=== PATIENT | male | born 1985 | race African-American/Black ===

== ENCOUNTER 2017-04-16 15:23 | Emergency (ER) | payer OTHER ==
[~2017-04-16] VITALS: Ht 182.9 cm; Wt 93.0 kg
[2017-04-16 15:35] VITALS: BP 126/72
--- NOTE | 2017-04-16 15:44 | PHYS DOC ---
Adult General Chief Complaint Chief Complaint: HEADACHE HPI HPI Patient is a 31 year old male presents the ED complaining of headache 2 days. Patient states he has been getting intermittent headaches over the last year. Patient states he has not been evaluated for them because Motrin usually gets them to go away. States he took Motrin yesterday but the headache went away and came back. 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 Describes the pain as sharp. Rates as 7/10. Denies worst headache of life, nausea/vomiting, trauma or injury, LOC, syncope, dizziness, weakness, paresthesias, chest pain or shortness of breath. Review of Systems Review of Systems Constitutional: Denies fever or chills [] Eyes: Denies change in visual acuity, redness, or eye pain [] HENT: Denies nasal congestion or sore throat [] Respiratory: Denies cough or shortness of breath [] Cardiovascular: No additional information not addressed in HPI [] GI: Denies abdominal pain, nausea, vomiting, bloody stools or diarrhea [] : Denies dysuria or hematuria [] Musculoskeletal: Denies back pain or joint pain [] Integument: Denies rash or skin lesions [] Neurologic: Complains of headache. Denies focal weakness or sensory changes [] Endocrine: Denies polyuria or polydipsia [] All other systems were reviewed and found to be within normal limits, except as documented in this note. Current Medications Current Medications Current Medications Medications (Trade) Dose Ordered Sig/Rut Start Time Stop Time Status Last Admin Dose Admin Acetaminophen/ Butalbital/ Caffeine (Fioricet) 1 tab PRN Q6HRS PRN 04/16/17 16:30 04/16/17 17:01 DC 04/16/17 16:36 1 TAB Diphenhydramine HCl (Benadryl) 25 mg 1X ONCE 04/16/17 16:00 04/16/17 16:01 DC 04/16/17 15:57 25 MG Ketorolac Tromethamine (Toradol Im) 60 mg 1X ONCE 04/16/17 16:00 04/16/17 16:01 DC 04/16/17 15:58 60 MG Ondansetron HCl (Zofran Odt) 4 mg 1X ONCE 04/16/17 16:00 04/16/17 16:01 DC 04/16/17 15:57 4 MG Allergies Allergies Allergies Coded Allergies Type Severity Reaction Last Updated Verified No Known Drug Allergies 04/16/17 No Physical Exam Physical Exam Constitutional: Well developed, well nourished, no acute distress, non-toxic appearance. [] HENT: Normocephalic, atraumatic, bilateral external ears normal, oropharynx moist, no oral exudates, nose normal. [] Eyes: PERRLA, EOMI, conjunctiva normal, no discharge. [] Neck: Normal range of motion, no tenderness, supple, no stridor. [] Cardiovascular:Heart rate regular rhythm, no murmur [] Lungs & Thorax: Bilateral breath sounds clear to auscultation [] Abdomen: Bowel sounds normal, soft, no tenderness, no masses, no pulsatile masses. [] Skin: Warm, dry, no erythema, no rash. [] Back: No tenderness, no CVA tenderness. [] Extremities: No tenderness, no cyanosis, no clubbing, ROM intact, no edema. [] Neurologic: Alert and oriented X 3, normal motor function, normal sensory function, no focal deficits noted. [] Psychologic: Affect normal, judgement normal, mood normal. [] Current Patient Data Vital Signs Vital Signs Date Time Temp Pulse Resp B/P (MAP) Pulse Ox O2 Delivery O2 Flow Rate FiO2 04/16/17 15:35 98.3 70 16 100 Room Air 98.3 EKG EKG [] Radiology/Procedures Radiology/Procedures [] Course & Med Decision Making Course & Med Decision Making Pertinent Labs and Imaging studies reviewed. (See chart for details) []Medicine given in ED alleviated patient's headache. Vital stable, no acute distress. No focal neural deficits. Patient well-appearing. States his headache is resolved. Discussed follow-up with a neurologist this week. Provided contact information/education. Discussed reasons to return to the ED. Patient understands and agrees with plan. Dragon Disclaimer [place]ion Disclaimer This electronic medical record was generated, in whole or in part, using a voice recognition dictation system. Departure Departure Impression: Primary Impression: Headache Disposition: HOME, SELF-CARE Condition: IMPROVED Referrals: GLADYS ESCALANTE MD Patient Instructions: General Headache Without Cause, Headache and Allergies Scripts Diphenhydramine Hcl (BENADRYL ALLERGY) 25 Mg Tablet 25 MG PO Q6HRS, #10 TAB Prov: RADHA MADDOX 04/16/17 Butalb/Acetaminophen/Caffeine ([id number]) 1 Each Capsule 1 EACH PO Q6-8HRS Y for HEADACHE, #14 CAP Prov: RADHA MADDOX 04/16/17 RADHA MADDOX Apr 16, 2017 15:44
[2017-04-16] MEDS ORDERED: diphenhydrAMINE HCL 25 MG CAPSULE PO ONE (16:00)
[2017-04-16] MEDS ORDERED: KETOROLAC 60 MG/2 ML INJ. IM ONE (16:00)
[2017-04-16] MEDS ORDERED: ONDANSETRON ODT 4 MG TAB.RAPDIS. PO ONE (16:00)
[2017-04-16] MEDS ORDERED: BUTALB/APAP/CAFEIN 50/325/40MG TABLET. PO PRN (16:30)
[2017-04-16] MEDS ORDERED: DIPH25TA64 PO (16:57)
[2017-04-16] MEDS ORDERED: BUTA1CAP57 PO (16:57)
== END 2017-04-16 16:58 | disposition home or self-care (01) ==
LOC: ER 15:23
DX: R51 Headache (principal)
CPT/HCPCS: 96372; 99284; J1885; Q0162; Q0163

== ENCOUNTER 2019-05-08 17:31 | Emergency (ER) | payer OTHER ==
[~2019-05-08] VITALS: Ht 185.4 cm; Wt 81.6 kg
[~2019-05-08 17:31] MED LIST: BUTA1CAP57 PO; DIPH25TA64 PO
[2019-05-08 17:45] VITALS: BP 157/80
--- NOTE | 2019-05-08 17:53 | PHYS DOC ---
Past Medical History Past Medical History: Migraines Additional Past Medical Histor: CHRONIC BACK PAIN Past Surgical History: No Surgical History Alcohol Use: None Drug Use: None Adult General Chief Complaint Chief Complaint: FLU SYMPTOM HPI HPI Patient is a 33 year old male who presents with nasal congestion, sore throat, cough and body aches and headache 4 days. Patient states he is just been taking Tylenol. Review of Systems Review of Systems Constitutional: fever or chills [] HENT: nasal congestion or sore throat [] Respiratory: cough or denies shortness of breath [] Musculoskeletal: Generalized body aches. Denies back pain or joint pain [] Neurologic: headache, denies focal weakness or sensory changes [] All other systems were reviewed and found to be within normal limits, except as documented in this note. Current Medications Current Medications Current Medications Medications (Trade) Dose Ordered Sig/Rut Start Time Stop Time Status Last Admin Dose Admin Ibuprofen (Motrin) 600 mg 1X ONCE 05/08/19 18:00 05/08/19 18:01 DC 05/08/19 17:56 600 MG Allergies Allergies Allergies Coded Allergies Type Severity Reaction Last Updated Verified No Known Drug Allergies 04/16/17 No Physical Exam Physical Exam Constitutional: Well developed, well nourished, no acute distress, non-toxic appearance. [] HENT: Normocephalic, atraumatic, bilateral external ears normal, oropharynx moist, no oral exudates, nose normal. [] Eyes: PERRLA, EOMI, conjunctiva normal, no discharge. [] Neck: Normal range of motion, no tenderness, supple, no stridor. [] Cardiovascular:Heart rate regular rhythm, no murmur [] Lungs & Thorax: Bilateral breath sounds clear to auscultation [] Abdomen: Bowel sounds normal, soft, no tenderness, no masses, no pulsatile masses. [] Skin: Warm, dry, no erythema, no rash. [] Back: No tenderness, no CVA tenderness. [] Extremities: No tenderness, no cyanosis, no clubbing, ROM intact, no edema. [] Neurologic: Alert and oriented X 3, normal motor function, normal sensory function, no focal deficits noted. [] Psychologic: Affect normal, judgement normal, mood normal. [] Current Patient Data Vital Signs Vital Signs Date Time Temp Pulse Resp B/P (MAP) Pulse Ox O2 Delivery O2 Flow Rate FiO2 05/08/19 17:45 103.0 93 18 157/80 (105) 98 Room Air 103.0 Lab Values Laboratory Tests Test 05/08/19 17:55 Influenza Type A Antigen Positive (NEGATIVE) Influenza Type B Antigen Negative (NEGATIVE) EKG EKG [] Radiology/Procedures Radiology/Procedures [] Course & Med Decision Making Course & Med Decision Making He states his cough is productive with yellow phlegm. Lungs are clear to auscultation all lobes. Tympanic is pink. Throat is without swelling or exudates. Speaks in full clear sentences. Ambulatory at the steady gait. Alert and oriented. Patient denies abdominal pain, nausea, vomiting, diarrhea, chest pain, shortness of air, dizziness, visual changes, numbness or tingling. Patient does smoke half a pack cigarettes a day. Patient is febrile 103. He states last took Tylenol was this morning. Dragon Disclaimer Dragon Disclaimer This electronic medical record was generated, in whole or in part, using a voice recognition dictation system. Departure Departure Impression: Primary Impression: Influenza A Disposition: 01 HOME, SELF-CARE Condition: STABLE Referrals: THANH CANNON MD (PCP) Patient Instructions: Influenza A (H1N1) Additional Instructions: Follow up with primary care provider. Take Ibuprofen and Tylenol ever 4-6 hours to keep fever and pain down. Try over the counter medications. Drink plenty of fluids. Scripts Benzonatate (TESSALON PERLE) 100 Mg Capsule 1 CAP PO TID, #30 CAP Prov: JAY FARR [employer] 05/08/19 Ondansetron (ONDANSETRON ODT) 4 Mg Tab.rapdis 1 TAB PO PRN Q6-8HRS, #16 TAB Prov: JAY FARR [employer] 05/08/19 Oseltamivir Phosphate (TAMIFLU) 75 Mg Capsule 1 CAP PO BID, #10 CAP Prov: JAY FARR [employer] 05/08/19 JAY FARR [employer] May 08, 2019 17:53
[2019-05-08] MEDS ORDERED: IBUPROFEN 200 MG TABLET. PO ONE (18:00)
[2019-05-08 18:23] LABS: INFLUENZA A PATIENT POSITIVE (NEGATIVE); INFLUENZA B PATIENT NEGATIVE (NEGATIVE)
[2019-05-08] MEDS ORDERED: OSEL75CA PO (18:28)
[2019-05-08] MEDS ORDERED: ONDA4TAB12 PO (18:28)
[2019-05-08] MEDS ORDERED: BENZ100C PO (18:30)
== END 2019-05-08 18:35 | disposition home or self-care (01) ==
LOC: ER 17:31
DX: J10.1 Influenza due to other identified influenza virus with other respiratory manifestations (principal); G89.29 Other chronic pain; G43.909 Migraine, unspecified, not intractable, without status migrainosus
CPT/HCPCS: 87804; 99284